=== PATIENT | male | born 1985 | race Caucasian/White ===

== ENCOUNTER 2017-01-16 10:04 | Emergency (ER) | payer MEDICAID ==
[2017-01-16] MEDS ORDERED: Dexamethasone 4 mg/1 ml IM STA (11:58)
[2017-01-16] MEDS ORDERED: Dexamethasone 4 mg/1 ml ONE (12:04)
--- NOTE | 2017-01-16 12:34 | C.PDOC ---
History Of Present Illness Patient reports that he slipped on the 4th step while walking down the stairs and injured his neck. The patient reports that initially he felt only mild pain , but then it progressively became worse. Patient denies any numbness, weakness , other injuries, chest pain, back pain, or SOB. 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) Current Symptoms Are (Timing): Still Present Quality Of Discomfort: Sharp Pain Scale Rating Of: 7 Associated Symptoms: denies: Incontinence, New Weakness, New Numbness Exacerbating Factor(s): Turning, Movement Recent travel outside of the [place]: No Past Medical History Reviewed: Historical Data, Nursing Documentation, Vital Signs Vital Signs: Last Vital Signs Temp 97.9 F 01/16/17 14:26 Pulse 63 01/16/17 14:26 Resp 18 01/16/17 14:26 BP 118/72 01/16/17 14:26 Pulse Ox 97 01/16/17 14:26 - Medical History PMH: Asthma Family History: States: Unknown Family Hx - Social History Hx Tobacco Use: Yes Hx Alcohol Use: No Hx Substance Use: No - Immunization History Hx Tetanus Toxoid Vaccination: Yes Hx Influenza Vaccination: Yes Hx Pneumococcal Vaccination: Yes Review Of Systems Musculoskeletal: Positive for: Neck Pain Neurological: Negative for: Weakness, Numbness Physical Exam - Physical Exam Appears: Well, No Acute Distress Skin: Normal Color, Warm, Dry, No Rash Head: Atraumatic, Normacephalic Eye(s): bilateral: Normal Inspection, PERRL, EOMI Nose: Normal Oral Mucosa: Moist Throat: Normal Neck: Paracervical Tenderness (moderate Left sided), Supple, Other ((+) tenderness with lateral movement of the neck) Chest: Symmetrical, No Tenderness Cardiovascular: Rhythm Regular, No Friction Rub, No Murmur Respiratory: Normal Breath Sounds, No Rales, No Rhonchi, No Wheezing Gastrointestinal/Abdominal: Normal Exam, Soft, No Tenderness, No Guarding, No Rebound Back: Normal Inspection, No CVA Tenderness, No Vertebral Tenderness, No Paraspinal Tenderness Extremity: Normal ROM, No Tenderness, No Swelling Pulses: Left Radial: Normal, Right Radial: Normal, Left Dorsalis Pedis: Normal, Right Dorsalis Pedis: Normal Neurological/Psych: Oriented x3, Normal Speech, Normal Cranial Nerves, Normal Motor, Normal Sensation Gait: Steady ED Course And Treatment O2 Sat by Pulse Oximetry: 98 (on RA) Pulse Ox Interpretation: Normal Medical Decision Making Medical Decision Making: The patient has moderate tenderness. C-collar placed as fracture precautions. On re-exam, the patient reports improvement of symptoms. Abdomen is soft, non- tender and patient is tolerating PO well. Lungs are CTA, heart is RRR. Ambulatory in the ED with steady gait. Follow up with the medical doctor within 1-2 days. Return if worsened. Disposition - Disposition Referrals: [facility] at [facility] [Outside] Disposition: HOME/ ROUTINE Disposition Time: 14:05 Condition: GOOD Additional Instructions: Follow up with the medical doctor within 1-2 days. Return if worsened. Prescriptions: Cyclobenzaprine [Cyclobenzaprine HCl] 10 mg PO BID #12 tab Naproxen [Naprosyn] 500 mg PO BID #20 tab Instructions: Cervical Strain (DC) Forms: [facility] (Lao), Work Excuse - POA Present On Arrival: None - Clinical Impression Clinical Impression: Cervical sprain
--- NOTE | 2017-01-16 13:10 | CT ---
PROCEDURE: CT Cervical Spine without contrast HISTORY: <fall, neck pain, at the C5-C7 area> COMPARISON: None available. TECHNIQUE: Axial computed tomography images were obtained of the cervical spine without the use of intravenous contrast. Coronal and sagittal reformatted images were created and reviewed. Radiation dose: Total exam DLP = 555.17 mGy-cm. This CT exam was performed using one or more of the following dose reduction techniques: Automated exposure control, adjustment of the mA and/or kV according to patient size, and/or use of iterative reconstruction technique. FINDINGS: VERTEBRAE: No fracture. Normal alignment. No destructive bony lesion. There is straightening of the cervical spine and loss of the normal lordosis which could be due to question position or muscle spasm. DISCS/SPINAL CANAL/NEURAL FORAMINA: No significant central canal or neural foraminal stenosis. Discs heights are grossly preserved. PARASPINAL SOFT TISSUES: Unremarkable. OTHER FINDINGS: Incidentally noted is mild emphysema at the lung apices right larger than left. IMPRESSION: No evidence of acute fracture or subluxation. Straightening of the cervical spine which could be due to the patient's position or muscle spasm. Mild emphysematous changes at the lung apices .
[2017-01-16 14:27] VITALS: BP 118/72; PULSE 63; RESP 18; TEMP 97.9
[2017-01-16 22:18] VITALS: O2SAT 98
== END 2017-01-16 14:30 | disposition home or self-care (01) ==
LOC: C.ER 10:04
DX: S13.9XXA Sprain of joints and ligaments of unspecified parts of neck, initial encounter (principal); W10.9XXA Fall (on) (from) unspecified stairs and steps, initial encounter
CPT/HCPCS: 72125; 96372; 99283; J1100; J1885

== ENCOUNTER 2017-04-27 13:12 | Emergency (ER) | payer MEDICAID ==
[2017-04-27 13:20] VITALS: RESP 16
[2017-04-27 13:39] LABS: BASO # 0.1 K/uL (0.0-0.2); BASO % 0.6 % (0.0-2.0); EOS % 0.5 % (0.0-4.0); LYMPH # 1.5 K/uL (1.0-4.3); LYMPH % 15.2 % (20.0-40.0); MEAN CELL VOLUME 92.5 fL (80.0-94.0); MEAN CORPUSCULAR HEMOGLOBIN 31.9 pg (27.0-31.0); MEAN CORPUSCULAR HGB CONC 34.5 g/dL (33.0-37.0); MEAN PLATELET VOLUME 8.5 fL (7.2-11.7); MONO # 0.7 K/uL (0.0-0.8); MONO % 7.2 % (0.0-10.0); NEUT # 7.6 K/uL (1.8-7.0); NEUT % 76.5 % (50.0-75.0); NRBC % 0.1 % (0.0-2.0); RBC 4.78 Mil/uL (4.40-5.90); RED CELL DISTRIBUTION WIDTH 11.9 % (11.5-14.5); WHITE BLOOD COUNT 9.9 K/uL (4.8-10.8)
[2017-04-27 13:43] LABS: HEMOGLOBIN 15.3 g/dL (12.0-18.0)
[2017-04-27 13:50] LABS: ALB/GLOB RATIO 1.5 (1.0-2.1); ALBUMIN 4.6 g/dL (3.5-5.0); ALT/SGPT 49 U/L (21-72); AST/SGOT 36 U/L (17-59); BLOOD UREA NITROGEN 13 mg/dL (9-20); CALCIUM 8.1 mg/dl (8.6-10.4); GFR AFRICAN-AMERICAN > 60; GFR NON-AFRICAN AMERICAN > 60
[2017-04-27 13:57] LABS: ACETAMINOPHEN < 10.0 ug/mL (10.0-30.0); SALICYLATE < 1.0 mg/dL 1
[2017-04-27] MEDS ORDERED: Sodium Chloride 0.9% 1,000 ML IV ONE (14:05)
[2017-04-27] MEDS ORDERED: Lactated Ringer's 1,000 ML IVB STA (14:10)
--- NOTE | 2017-04-27 14:32 | RAD ---
HISTORY: AMS COMPARISON: No prior. FINDINGS: LUNGS: No focal infiltrate is seen. Minimal interstitial change is noted although a portion of this is probably related to the portable technique. PLEURA: No significant pleural effusion identified, no pneumothorax apparent. CARDIOVASCULAR: Normal. OSSEOUS STRUCTURES: No significant abnormalities. VISUALIZED UPPER ABDOMEN: Normal. OTHER FINDINGS: None. IMPRESSION: No focal alveolar infiltrate. No CHF.
--- NOTE | 2017-04-27 15:25 | CT ---
PROCEDURE: CT HEAD WITHOUT CONTRAST. HISTORY: Possible seizure after taking "Ecstasy" COMPARISON: 2014 TECHNIQUE: Axial computed tomography images were obtained through the head/brain without intravenous contrast. Radiation dose: Total exam DLP = 815 mGy-cm. This CT exam was performed using one or more of the following dose reduction techniques: Automated exposure control, adjustment of the mA and/or kV according to patient size, and/or use of iterative reconstruction technique. FINDINGS: HEMORRHAGE: No intracranial hemorrhage. BRAIN: No mass effect or edema. No atrophy or chronic microvascular ischemic changes. VENTRICLES: Unremarkable. No hydrocephalus. CALVARIUM: Unremarkable. PARANASAL SINUSES: Mild mucosal changes are seen in the sinuses. Retro-orbital regions are unremarkable. MASTOID AIR CELLS: Unremarkable as visualized. No inflammatory changes. OTHER FINDINGS: None. IMPRESSION: Grossly unremarkable CT scan of the head without contrast.
--- NOTE | 2017-04-27 16:14 | C.PDOC ---
History Of Present Illness EMS was called by pt's cousin. He states that pt was took Ecstasy last night and since he came home this morning he has been acting strange and having seizure-like activity. Time Seen by Provider: 04/27/17 13:20 Chief Complaint (Nursing): Substance Abuse History Per: Patient, EMS, Family (Cousine) History/Exam Limitations: clinical condition Onset/Duration Of Symptoms: Unknown Current Symptoms Are (Timing): Still Present Modifying Factor(s): Alcohol, Other ("Ecstasy") Severity: Moderate Associated Symptoms: denies: Suicidal Thoughts, Suicidal Plan Additional History Per: Prior Records Past Medical History Reviewed: Historical Data, Nursing Documentation, Vital Signs Vital Signs: Last Vital Signs Temp 97.0 F L 04/27/17 13:17 Pulse 99 H 04/27/17 13:17 Resp 16 04/27/17 13:17 BP 130/85 04/27/17 13:17 Pulse Ox 97 04/27/17 13:17 - Medical History PMH: Asthma Family History: States: Unknown Family Hx - Social History Hx Tobacco Use: Yes Hx Alcohol Use: Yes Hx Substance Use: Yes - Immunization History Hx Tetanus Toxoid Vaccination: Yes Hx Influenza Vaccination: Yes Hx Pneumococcal Vaccination: Yes Physical Exam - Physical Exam Appears: No Acute Distress Skin: Normal Color, Warm, Dry Head: No Laceration, Other (contusion on forehead) Eye(s): bilateral: PERRL Neck: Normal ROM, No Midline Cervical Tenderness, No Step Off Deformity, Supple Chest: Symmetrical, No Deformity, Other (contusion on left shoulder area) Cardiovascular: Rhythm Regular Respiratory: Normal Breath Sounds, No Accessory Muscle Use Gastrointestinal/Abdominal: Soft, No Tenderness Back: No Vertebral Tenderness Extremity: Normal ROM, No Deformity Neurological/Psych: Oriented x3, Normal Motor, Normal Sensation, Slow To Respond With Command ED Course And Treatment - Laboratory Results Result Diagrams: 04/27/17 13:32 04/27/17 13:32 ECG: Interpreted By Me, Viewed By Me ECG Rhythm: Sinus Rhythm, Nonspecific Changes Rate From EC O2 Sat by Pulse Oximetry: 97 Pulse Ox Interpretation: Normal - Radiology CXR: Viewed By Me, Read By Radiologist CXR Interpretation: Yes: No Acute Disease - CT Scan/US CT head Other Rad Studies (CT/US): Read By Radiologist, Radiology Report Reviewed CT/US Interpretation: IMPRESSION: Grossly unremarkable CT scan of the head without contrast. Progress - Interventions Interventions:: Observation, Intravenous fluid - Data Reviewed Data Reviewed: Lab, Diagnostic imaging, EKG, Old records - Patient Status Patient status: Mostly improved - Continuity of Care Discussed patient case with:: Patient, Family-HIPPA compliant, ED Nurse - Patient Plan Patient Plan: Discharge, F/U with PCP Disposition Counseled Patient/Family Regarding: Studies Performed, Diagnosis, Need For Followup, Smoking Cessation - Disposition Disposition: HOME/ ROUTINE Disposition Time: 16:17 Condition: IMPROVED Additional Instructions: Avoid alcohol and other drugs. Follow up with your doctor. Return to the ER if you develop seizure, confusion, worsening of symptoms or if you have any other concerns. Instructions: Polysubstance Abuse (ED) Forms: [facility] (Tamazight), General Discharge Instructions - Clinical Impression Clinical Impression: Drug abuse, Alcohol intoxication
[2017-04-27 16:27] VITALS: BP 126/80; PULSE 84; TEMP 97.4; O2SAT 98
== END 2017-04-27 16:28 | disposition home or self-care (01) ==
LOC: C.ER 13:12
DX: F19.10 Other psychoactive substance abuse, uncomplicated (principal); F10.129 Alcohol abuse with intoxication, unspecified; Y90.2 Blood alcohol level of 40-59 mg/100 ml
CPT/HCPCS: 70450; 71045; 80053; 80320; 80329; 83735; 85025; 99283; J7120

== ENCOUNTER 2017-04-28 07:29 | Emergency (ER) | payer MEDICAID ==
[2017-04-28 07:44] VITALS: BMI 20.9
[2017-04-28] MEDS ORDERED: Albuterol-Ipratrop 3 mg / 0.5 (3 ml) UD ONE (08:00)
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
--- NOTE | 2017-04-28 08:30 | RAD ---
PROCEDURE: Radiographs of the Left Shoulder HISTORY: left shoulder injury COMPARISON: No prior. FINDINGS: BONES: Normal. No fracture. JOINTS: Normal. Glenohumeral and acromioclavicular joints preserved. No osteoarthritis. SOFT TISSUES: Normal. OTHER FINDINGS: None. IMPRESSION: No evidence of acute fracture or dislocation.
[2017-04-28 10:01] VITALS: BP 118/70; PULSE 70; RESP 16; TEMP 97.5; O2SAT 98
== END 2017-04-28 10:00 | disposition home or self-care (01) ==
LOC: C.ER 07:29
DX: S43.402A Unspecified sprain of left shoulder joint, initial encounter (principal); Y08.89XA Assault by other specified means, initial encounter

== ENCOUNTER 2017-07-12 11:24 | Emergency (ER) | payer MEDICAID ==
[2017-07-12 11:25] VITALS: BMI 20.9
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
[2017-07-12] MEDS ORDERED: Iohexol 240 (50 ml) PO STA (12:40)
[2017-07-12] MEDS ORDERED: Morphine 4 MG/ML VIAL ONE (13:05)
[2017-07-12 13:08] LABS: URINE BILIRUBIN NEGATIVE (NEGATIVE); URINE BLOOD NEGATIVE (NEGATIVE); URINE CLARITY Clear (Clear); URINE COLOR Yellow (YELLOW); URINE GLUCOSE (UA) NORMAL (Normal); URINE LEUKOCYTE ESTERASE NEG Leu/uL (Negative); URINE PROTEIN NEGATIVE (NEGATIVE); URINE UROBILINOGEN NORMAL mg/dL (0.2-1.0)
[2017-07-12] MEDS ORDERED: Iohexol 240 (50 ml) ONE (13:08)
[2017-07-12 13:09] LABS: BASO % 0.6 % (0.0-2.0); EOS # 0.1 K/uL (0.0-0.7); EOS % 1.5 % (0.0-4.0); HEMOGLOBIN 15.7 g/dL (12.0-18.0); LYMPH # 1.4 K/uL (1.0-4.3); LYMPH % 17.2 % (20.0-40.0); MEAN CORPUSCULAR HEMOGLOBIN 31.7 pg (27.0-31.0); MEAN CORPUSCULAR HGB CONC 34.1 g/dL (33.0-37.0); MONO # 0.7 K/uL (0.0-0.8); NEUT % 72.7 % (50.0-75.0); NRBC % 0.1 % (0.0-2.0); RBC 4.94 Mil/uL (4.40-5.90); WHITE BLOOD COUNT 8.3 K/uL (4.8-10.8)
[2017-07-12 13:23] LABS: ALB/GLOB RATIO 1.3 (1.0-2.1); ALBUMIN 4.4 g/dL (3.5-5.0); ALT/SGPT 40 U/L (21-72); AST/SGOT 41 U/L (17-59); BLOOD UREA NITROGEN 9 mg/dL (9-20); CALCIUM 9.3 mg/dl (8.6-10.4); GFR AFRICAN-AMERICAN > 60; GFR NON-AFRICAN AMERICAN > 60; LIPASE 52 U/L (23-300)
[2017-07-12 14:14] VITALS: PULSE 66; RESP 18
--- NOTE | 2017-07-12 16:20 | CT ---
PROCEDURE: CT Abdomen without intravenous contrast HISTORY: abd pain COMPARISON: None. TECHNIQUE: Axial images of the abdomen from lung bases to iliac crest without intravenous contrast enhancement. Coronal and sagittal reformats generated. Oral contrast was administered. Radiation dose: Total exam DLP = 225.81 mGy-cm. This CT exam was performed using one or more of the following dose reduction techniques: Automated exposure control, adjustment of the mA and/or kV according to patient size, and/or use of iterative reconstruction technique. Limited evaluation of the vasculature and soft tissues due to lack of administration S. FINDINGS: LOWER THORAX: Unremarkable. LIVER: Unremarkable. No gross lesion or ductal dilatation. Limited evaluation. GALLBLADDER AND BILE DUCTS: Unremarkable. PANCREAS: Unremarkable. No gross lesion or ductal dilatation. SPLEEN: Unremarkable. ADRENALS: Unremarkable. No mass. KIDNEYS AND URETERS: No hydronephrosis. Punctate calculi seen in both kidneys. VASCULATURE: Evaluation of vasculature is suboptimal given lack of IV contrast. BOWEL: No obstruction. APPENDIX: Normal appendix. PERITONEUM: Unremarkable. No free fluid. No free air. LYMPH NODES: Unremarkable. No enlarged lymph nodes. BONES: No acute fracture. OTHER FINDINGS: None. IMPRESSION: No right lower quadrant inflammatory changes. Unremarkable appendix. Punctate nonobstructing bilateral renal calculi. No hydronephrosis. Findings discussed with Dr. Rojas at approximately 16:19 p.m. on 07/12/2017.
[2017-07-12 16:49] VITALS: BP 105/65; TEMP 98
[2017-07-12 16:52] VITALS: O2SAT 100
== END 2017-07-12 17:08 | disposition home or self-care (01) ==
LOC: C.ER 11:24
DX: R10.9 Unspecified abdominal pain (principal); N18.9 Chronic kidney disease, unspecified; Z72.0 Tobacco use
CPT/HCPCS: 74176; 80053; 81001; 83690; 85025; 96374; 96375; 99285; J2270; J2405; Q9966

== ENCOUNTER 2017-11-07 18:26 | Emergency (ER) | payer MEDICAID ==
[2017-11-07 18:26] VITALS: BMI 20.9
[2017-11-07 18:39] VITALS: BP 107/71; PULSE 117; RESP 21; TEMP 98.4; O2SAT 98
[2017-11-07] MEDS ORDERED: Lidocaine 1%/Epinephrine 1:100000 30 ml vial IJ ONE (19:14)
[2017-11-07] MEDS ORDERED: Oxycodone/Acetaminophen 5/325 mg Tab PO STA (19:27)
--- NOTE | 2017-11-07 19:30 | C.PDOC ---
History Of Present Illness 32 y/o male presents to the ER complaining of pain and swelling to the right buttock which has been present for the past 3 days. Admits trying to squeeze it , without discharge. Patient denies having bite to area, discharge, pain with bowel movement, perirectal pain, fever, and chills. Time Seen by Provider: 11/07/17 19:00 Chief Complaint (Nursing): Abnormal Skin Integrity History Per: Patient History/Exam Limitations: no limitations Onset/Duration Of Symptoms: Days Current Symptoms Are (Timing): Still Present Past Medical History Reviewed: Historical Data, Nursing Documentation, Vital Signs Vital Signs: Last Vital Signs Temp 98.4 F 11/07/17 18:36 Pulse 117 H 11/07/17 18:36 Resp 21 11/07/17 18:36 BP 107/71 11/07/17 18:36 Pulse Ox 98 11/07/17 20:11 - Medical History PMH: Asthma, Fractures (RT WRIST), Kidney Stones, Chronic Kidney Disease Surgical History: No Surg Hx Family History: States: No Known Family Hx - Social History Hx Tobacco Use: Yes Hx Alcohol Use: Yes Hx Substance Use: Yes - Immunization History Hx Tetanus Toxoid Vaccination: Yes Hx Influenza Vaccination: Yes Hx Pneumococcal Vaccination: No Review Of Systems Except As Marked, All Systems Reviewed And Found Negative. Genitourinary: Negative for: Dysuria, Hematuria Musculoskeletal: Positive for: Other (right buttock pain) Physical Exam - Physical Exam Appears: Non-toxic, No Acute Distress Skin: Warm, Dry Head: Atraumatic, Normacephalic Eye(s): bilateral: Normal Inspection, EOMI Nose: Normal Oral Mucosa: Moist Neck: Normal ROM, Supple Chest: Symmetrical Respiratory: No Accessory Muscle Use Extremity: Normal ROM, Other (6 cm area of erythema with central induration and punctate lesion, no fluctuance) Neurological/Psych: Oriented x3, Normal Speech ED Course And Treatment O2 Sat by Pulse Oximetry: 98 (RA) Pulse Ox Interpretation: Normal Progress Note: Patient treated with Keflex PO. Disucssed woulnd care and wound check in 2 days. - Incision & Drainage Of Abscess Anesthesia: Lidocaine 1%, With Epi Prep Used: Sterile Water, Betadine Procedure: Incised W/Scalpel Blade#: (11), Drained Pus (min), Irrigated Cavity W /Saline, Probed To Break Up Loculations, Cultures Obtained And Sent To Lab Disposition - Disposition Disposition: HOME/ ROUTINE Disposition Time: 19:27 Condition: STABLE Additional Instructions: Wound check in 2 days. Return sooner if area becomes increasing red or swollen. 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 - Scribe Statement The provider has reviewed the documentation as recorded by the Cara Moseley Provider Attestation All medical record entries made by the Preciousibdave were at my direction and personally dictated by me. I have reviewed the chart and agree that the record accurately reflects my personal performance of the history, physical exam, medical decision making, and the department course for this patient. I have also personally directed, reviewed, and agree with the discharge instructions and disposition.
[2017-11-07] MEDS ORDERED: Oxycodone/Acetaminophen 5/325 mg Tab ONE (19:31)
[2017-11-07] MEDS ORDERED: Bacitracin 500 Units/gm Oint Foilpak UD ONE (19:47)
== END 2017-11-07 19:45 | disposition home or self-care (01) ==
LOC: C.ER 18:26
DX: L02.31 Cutaneous abscess of buttock (principal); L03.317 Cellulitis of buttock

== ENCOUNTER 2018-09-07 13:45 | Emergency (ER) | payer MEDICAID ==
[2018-09-07 13:45] VITALS: BMI 20.9
[2018-09-07 13:55] VITALS: RESP 18; TEMP 96
[2018-09-07] MEDS ORDERED: Sodium Chloride 0.9% 1,000 ML IV ONE (14:04)
[2018-09-07] MEDS ORDERED: Sodium Chloride 0.9% 1,000 ML ONE (14:16)
--- NOTE | 2018-09-07 14:16 | C.PDOC ---
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 Mother states that he was spitting, but not vomiting. Mother notes a family history of kidney stones. Patient has a PMHx of asthma and substance abuse. He denies back pain, trauma, urinary symptoms, fever, chill, and vomiting. Time Seen by Provider: 09/07/18 13:51 Chief Complaint (Nursing): Abdominal Pain History Per: Patient, Family (mother) History/Exam Limitations: no limitations Onset/Duration Of Symptoms: Mins (30) Current Symptoms Are (Timing): Still Present Location Of Pain/Discomfort: RLQ Radiation Of Pain To:: None Quality Of Discomfort: "Pain" Associated Symptoms: denies: Fever, Chills, Vomiting, Diarrhea Past Medical History Reviewed: Historical Data, Nursing Documentation, Vital Signs Vital Signs: Last Vital Signs Temp 96 F L 09/07/18 13:48 Pulse 58 L 09/07/18 13:48 Resp 18 09/07/18 13:48 BP 143/80 09/07/18 13:48 Pulse Ox 97 09/07/18 13:48 Primary Care Provider: FAMILY PROVIDER,NO - Medical History PMH: Asthma, Fractures (RT WRIST), Kidney Stones, Chronic Kidney Disease Surgical History: No Surg Hx Family History: States: Unknown Family Hx - Social History Hx Tobacco Use: Yes Hx Alcohol Use: Yes Hx Substance Use: Yes - Immunization History Hx Tetanus Toxoid Vaccination: Yes Hx Influenza Vaccination: Yes Hx Pneumococcal Vaccination: No Review Of Systems Constitutional: Negative for: Fever, Chills, Weakness Gastrointestinal: Positive for: Abdominal Pain (right lower quadrant). Negative for: Nausea, Vomiting, Diarrhea, Constipation Physical Exam - Physical Exam Appears: Non-toxic, Other (uncomfortable, verbally abusive) Skin: Normal Color, Warm, Dry Head: Atraumatic, Normacephalic Eye(s): bilateral: Normal Inspection (Conjunctiva clear), PERRL, EOMI Oral Mucosa: Moist Chest: Symmetrical Cardiovascular: Rhythm Regular, No Murmur Respiratory: No Rales, No Rhonchi, No Wheezing, Other (Good air movement, Lungs CTA bilaterally) Gastrointestinal/Abdominal: Bowel Sounds (normoactive), Soft, Tenderness (right lower quadrant), No Guarding, No Rebound Back: No CVA Tenderness Extremity: Capillary Refill (<2 seconds) Extremity: Bilateral: Atraumatic, Normal Color And Temperature, Normal ROM, Other ( no cyanosis or edema) Pulses: Left Dorsalis Pedis: Normal, Right Dorsalis Pedis: Normal Neurological/Psych: Oriented x3, Normal Speech, Normal Cognition, Normal Cranial Nerves, Normal Motor, Normal Sensation Gait: Steady ED Course And Treatment - Laboratory Results Result Diagrams: 09/07/18 14:15 09/07/18 14:15 O2 Sat by Pulse Oximetry: 97 (in RA) Pulse Ox Interpretation: Normal - CT Scan/US Abdomen/Pelvis CT Other Rad Studies (CT/US): Read By Radiologist CT/US Interpretation: IMPRESSION: 2 mm calculus at the right proximal urinary bladder, likely recently passed calculus. Nonobstructing bilateral punctate renal calculi. No hydronephrosis. Moderate constipation. Medical Decision Making Medical Decision Making: Impression: 33 year old male presents to ED with complaint of right lower quadrant abdominal pain. Initial Plan: Abdomen/Pelvis CT CMP CBC lipase UA Morphine IVP IV fluids Zofran IVP Patient's symptoms resolved after medication. results of w/u d/w patient. Patient no longer verbally abusive. Patient states he has a PMD with whom to follow up. Patient to be given strainer. Disposition Counseled Patient/Family Regarding: Studies Performed, Diagnosis, Need For Followup - Disposition Referrals: [facility] [Outside] [facility] [Outside] Disposition: HOME/ ROUTINE Disposition Time: 16:49 Condition: IMPROVED Additional Instructions: JANAE BRISENO, thank you for letting us take care of you today. Your provider was Radha Yanez MD and you were treated for LOW HEART RATE, PAIN. The emergency medical care you received today was directed at your acute symptoms. If you were prescribed any medication, please fill it and take as directed. It may take several days for your symptoms to resolve. Return to the Emergency Department if your symptoms worsen, do not improve, or if you have any other problems. Please contact your doctor or call one of the physicians/clinics you have been referred to that are listed on the Patient Visit Information form that is included in your discharge packet. Bring any paperwork you were given at discharge with you along with any medications you are taking to your follow up visit. Our treatment cannot replace ongoing medical care by a primary care provider outside of the emergency department. [facility] you [facility] to be part of your care today. Prescriptions: Ibuprofen [Motrin Tab] 800 mg PO TID PRN #30 tab PRN Reason: Pain, Moderate (4-7) Tamsulosin [Flomax] 0.4 mg PO DAILY #14 cap Instructions: Renal Colic (DC) Forms: Alerts (Lithuanian) - Clinical Impression Clinical Impression: Renal colic on right side - Scribe Statement The provider has reviewed the documentation as recorded by the Scribe (Dana Tolentino) All medical record entries made by the Scribe were at my direction and personally dictated by me. I have reviewed the chart and agree that the record accurately reflects my personal performance of the history, physical exam, medical decision making, and the department course for this patient. I have also personally directed, reviewed, and agree with the discharge instructions and disposition.
[2018-09-07 14:21] LABS: BASO # 0.1 K/uL (0.0-0.2); BASO % 0.7 % (0.0-2.0); EOS # 0.1 K/uL (0.0-0.7); EOS % 1.7 % (0.0-4.0); HEMOGLOBIN 16.2 g/dL (12.0-18.0); LYMPH % 22.8 % (20.0-40.0); MEAN CELL VOLUME 93.8 fL (80.0-94.0); MEAN CORPUSCULAR HEMOGLOBIN 32.2 pg (27.0-31.0); MEAN CORPUSCULAR HGB CONC 34.3 g/dL (33.0-37.0); MEAN PLATELET VOLUME 8.5 fL (7.2-11.7); MONO # 0.9 K/uL (0.0-0.8); MONO % 10.4 % (0.0-10.0); NEUT # 5.8 K/uL (1.8-7.0); NEUT % 64.4 % (50.0-75.0); RBC 5.02 Mil/uL (4.40-5.90); RED CELL DISTRIBUTION WIDTH 12.3 % (11.5-14.5)
[2018-09-07 14:33] LABS: ALB/GLOB RATIO 1.2 (1.0-2.1); ALBUMIN 4.7 g/dL (3.5-5.0); BLOOD UREA NITROGEN 12 mg/dL (9-20); CALCIUM 9.7 mg/dl (8.6-10.4); GFR NON-AFRICAN AMERICAN > 60; LIPASE 30 U/L (23-300)
[2018-09-07 14:34] LABS: ALT/SGPT 27 U/L (21-72); AST/SGOT 52 U/L (17-59)
--- NOTE | 2018-09-07 15:15 | CT ---
PROCEDURE: CT Abdomen and Pelvis without Oral or IV contrast. HISTORY: abd pain COMPARISON: CT abdomen and pelvis without IV contrast performed 07/12/17 TECHNIQUE: Contiguous axial images of the abdomen and pelvis. No oral or IV contrast administered. Coronal and Sagittal reformats generated and reviewed. Radiation dose: Total exam DLP = 207.81 mGy-cm. This CT exam was performed using one or more of the following dose reduction techniques: Automated exposure control, adjustment of the mA and/or kV according to patient size, and/or use of iterative reconstruction technique. FINDINGS: There is limited evaluation of the solid organs without the administration of IV contrast. LOWER THORAX: No visible consolidation, pleural effusion, or pneumothorax. LIVER: Unremarkable unenhanced appearance. GALLBLADDER AND BILE DUCTS: Unremarkable unenhanced appearance. PANCREAS: Unremarkable unenhanced appearance. SPLEEN: Unremarkable unenhanced appearance. ADRENALS: Unremarkable unenhanced appearance. KIDNEYS AND URETERS: No hydronephrosis or obstructing renal calculus. Nonobstructing bilateral punctate renal calculi. BLADDER: 2 mm calculus at the right proximal urinary bladder, likely recently passed calculus. REPRODUCTIVE: Unremarkable. APPENDIX: The appendix appears within normal limits of caliber. No secondary signs of acute appendicitis. BOWEL: The stomach is nondistended. Lack of oral contrast limits evaluation for bowel pathology. The bowel loops appear within normal limits of caliber without evidence of intestinal obstruction. Moderate constipation. PERITONEUM: No significant free fluid. No definite free air. LYMPH NODES: No bulky lymphadenopathy identified. VASCULATURE: No significant atherosclerotic calcifications. No aortic aneurysm. BONES: No acute osseous abnormality is detected. OTHER FINDINGS: None. IMPRESSION: 2 mm calculus at the right proximal urinary bladder, likely recently passed calculus. Nonobstructing bilateral punctate renal calculi. No hydronephrosis. Moderate constipation.
[2018-09-07 16:19] LABS: URINE BILIRUBIN NEGATIVE (NEGATIVE); URINE BLOOD 3+ (NEGATIVE); URINE CALCIUM OXALATE CRYSTALS RARE /hpf (<OCC); URINE CLARITY Hazy (Clear); URINE COLOR Yellow (YELLOW); URINE GLUCOSE (UA) NORMAL (Normal); URINE LEUKOCYTE ESTERASE NEG Leu/uL (Negative); URINE PROTEIN NEGATIVE (NEGATIVE); URINE UROBILINOGEN NORMAL mg/dL (0.2-1.0)
[2018-09-07 16:29] VITALS: BP 105/69; PULSE 81
[2018-09-07 16:33] LABS: BARBITURATES, UR NEGATIVE (NEGATIVE); BENZODIAZEPINES, UR NEGATIVE (NEGATIVE); PHENCYCLIDINE, UR NEGATIVE (NEGATIVE)
[2018-09-07 16:35] LABS: OPIATES, UR POSITIVE (NEGATIVE)
[2018-09-07 16:45] VITALS: O2SAT 97
== END 2018-09-07 16:56 | disposition home or self-care (01) ==
LOC: C.ER 13:45
DX: N23 Unspecified renal colic (principal); N18.9 Chronic kidney disease, unspecified
CPT/HCPCS: 74176; 80053; 80324; 80345; 80346; 80349; 80353; 80358; 80361; 81001; 83690; 83992; 85025; 96374; 96375; 99284; J2270; J2405; J7030